=== PATIENT | male | born 1990 | race Caucasian/White ===

== ENCOUNTER 2022-12-24 07:17 | Emergency (ER) | payer OTHER ==
[2022-12-24] MEDS ORDERED: Cyclobenzaprine 10 MG Tab PO ONE (07:26)
[2022-12-24] MEDS ORDERED: Ketorolac 30 MG/ML SDV IM ONE (07:27)
[2022-12-24] MEDS ORDERED: MENTHOL TOP PRN ×2 (08:19→10:00)
[2022-12-24] MEDS ORDERED: CAMPHOR TOP PRN (08:19)
[2022-12-24 08:32] LABS: APPEARANCE,URINE CLEAR (CLEAR); BACTERIA,URINE FEW (NS); BILIRUBIN,URINE NEGATIVE (NEGATIVE); COLOR,URINE YELLOW (YELLOW); GLUCOSE,URINE NORMAL (NORMAL); KETONES,URINE NEGATIVE (NEGATIVE); LEUKOCYTE ESTERASE,URINE NEGATIVE (NEGATIVE); NITRITE,URINE NEGATIVE (NEGATIVE); OCCULT BLOOD,URINE NEGATIVE (NEGATIVE); PROTEIN,URINE NEGATIVE (NEGATIVE); RBC,URINE 0-5 (0-5); SQUAMOUS EPITHELIAL CELLS,UR FEW (NS,R,O); UROBILINOGEN,URINE NORMAL (NEGATIVE); WBC,URINE 0-5 (0-5)
[2022-12-24 08:32] LABS: BASOPHILS PERCENT AUTO 0.2 % (0.3-3.8); EOSINOPHILS PERCENT AUTO 0.4 % (0.1-6.8); HEMATOCRIT 44.6 % (38.3-50.1); HEMOGLOBIN 14.9 g/dL (12.9-17.7); LYMPHOCYTES ABSOLUTE AUTO 1.2 x10-3/uL (0.5-4.5); MEAN CORPUSCULAR HEMOGLOBIN 28.9 pg (27.0-33.3); MEAN CORPUSCULAR HGB CONC 33.4 g/dL (28.7-35.3); MEAN CORPUSCULAR VOLUME 86.4 fL (80.8-98.7); MEAN PLATELET VOLUME 8.5 fL (6.7-11.0); MONOCYTES ABSOLUTE AUTO 0.5 x10-3/uL (0.0-1.2); NEUTROPHILS PERCENT AUTO 83.4 % (40.3-71.8); PLATELET COUNT,PLT 266 x10(3)uL (117-477); RED BLOOD CELL COUNT 5.17 x10(6)uL (3.90-5.90); RED CELL DISTRIBUTION WIDTH 13.1 % (12.4-15.0); WHITE BLOOD CELL COUNT,WBC 10.8 x10-3/uL (3.2-10.1)
[2022-12-24 08:34] LABS: BLOOD UREA NITROGEN,BUN 12 mg/dL (7-18); CALCIUM 8.9 mg/dL (8.6-10.2); CARBON DIOXIDE,CO2 27 mmol/L (21-32); CHLORIDE,CL 107 mmol/L (100-110); CREATININE 0.8 mg/dL (0.70-1.30); EST CRCL DRUG DOSING (CG) 142.81 mL/min; ESTIMATED GFR 119 mL/min (>60); GLUCOSE RANDOM 124 mg/dL (80-116); POTASSIUM,K 4.1 mmol/L (3.5-5.3); SODIUM,NA 142 mmol/L (135-145)
[2022-12-24 08:40] LABS: A/G RATIO 1.2; ALANINE AMINOTRANSFERASE,ALT 33 U/L (12-36); ALBUMIN 3.9 g/dL (3.5-5.2); ALKALINE PHOSPHATASE 63 IU/L (56-112); ASPARTATE AMNIOTRANSFERASE,AST 20 IU/L (5-25); BILIRUBIN TOTAL 0.4 mg/dL (0.1-1.3); PROTEIN TOTAL,TP 7.1 g/dL (6.0-8.0)
[2022-12-24] MEDS ORDERED: Menthol 10%/Methyl Salicylate 30% 85 GM Tube TOP PRN (08:55)
[2022-12-24] MEDS ORDERED: Gabapentin 300 MG Cap PO ONE (09:25)
[2022-12-24] MEDS ORDERED: tiZANidine 4 MG Tab PO STA (09:56)
[2022-12-24] MEDS ORDERED: METHYL SALICYLATE TOP PRN (10:00)
[2022-12-24] MEDS ORDERED: Acetaminophen/HYDROcodone 325-10 MG Tab PO ONE (15:11)
[2022-12-24] MEDS ORDERED: Acetaminophen/HYDROcodone 325-5 MG Tab PO ONE (19:17)
== END 2022-12-24 19:20 | disposition home or self-care (01) ==
LOC: FB.ED 07:17
DX: M62.830 Muscle spasm of back (principal); M51.36 Other intervertebral disc degeneration, lumbar region; Z88.1 Allergy status to other antibiotic agents; Z20.822 Contact with and (suspected) exposure to COVID-19
CPT/HCPCS: 36415; 72131; 80053; 81001; 85025; 87635; 96372; 99284; A9270; J1885; U0002